=== PATIENT | female | born 1960 | race Caucasian/White ===

== ENCOUNTER 2019-01-27 09:41 | Emergency (ER) | payer OTHER ==
[~2019-01-27] VITALS: Ht 157.5 cm; Wt 53.8 kg
[~2019-01-27 09:41] MED LIST: ASPI-650 PO; ASPI81TA52 PO; ATOR80TA18; BENA10TA4 PO; CALC500T; CARV25TA79 PO; CLON0.2T5 PO; DOCU-159; DOCU-159 PO; FAMO20TA18 PO; FURO20TA3 PO; FURO40TA4 PO; GABA300C16; INSU100C SQ; INSU100V23 SC; LORA1TAB PO; METO-53; MULT-236; NIFE60TA18 PO; NPH SC; OMEG500C3; OXYC5TAB; TRAZ-111
[2019-01-27 09:43] VITALS: Ht 157.5 cm; Wt 53.8 kg
--- NOTE | 2019-01-27 11:36 | ERD ---
ER Documentation Chief Complaint Chief Complaint chest pain this morning and hypertension since last night HPI 58-year-old female end-stage renal disease on dialysis Monday who ran out of her nifedipine did not take her p.m. dose yesterday but instead took clonidine. Patient endorses mild shortness of breath and chest pain since yesterday. Is due for dialysis tomorrow through her porch in her right chest. Patient denies any infectious symptoms no fever, cough, diaphoresis. ROS All systems reviewed and are negative except as per history of present illness. Medications Home Meds Reported Medications Lorazepam* (Lorazepam*) 1 Mg Tablet, 1 MG PO HS PRN for ANXIETY, #30 TAB 01/27/19 Insulin Lispro (Humalog) 100 Unit/1 Ml Cartridge, 0 SQ PRN, EA PT USES PUMP 01/27/19 Nifedipine* (Nifedipine ER*) 60 Mg Tablet.sa, 60 MG PO BID, TAB.SA 01/27/19 Carvedilol* (Carvedilol*) 25 Mg Tablet, 25 MG PO BID, #60 TAB 01/27/19 Clonidine Hcl* (Clonidine Hcl*) 0.2 Mg Tablet, 0.2 MG PO DAILY PRN for ELEVATED BLOOD PRESSURE, TAB 01/27/19 Aspirin (Low Dose Aspirin) 81 Mg Tablet.dr, 81 MG PO DAILY, #30 TAB 01/27/19 Docusate Sodium* (Docusate Sodium*) 100 Mg Capsule, 100 MG PO DAILY, #30 CAP 01/27/19 Furosemide* (Furosemide*) 40 Mg Tablet, 40 MG PO QAM, TAB 01/27/19 Furosemide* (Furosemide*) 20 Mg Tablet, 20 MG PO QHS, #60 TAB 01/27/19 Famotidine* (Famotidine*) 20 Mg Tablet, 20 MG PO DAILY, #30 TAB 01/27/19 Discontinued Reported Medications Benazepril Hcl* (Benazepril Hcl*) 10 Mg Tablet, 10 MG PO DAILY 12/07/11 Famotidine* (Famotidine*) 20 Mg Tablet, 20 MG PO DAILY 12/07/11 Aspirin (Aspirin) 81 Mg Tablet, 81 MG PO DAILY 06/06/11 Multivitamins (Multi-Day Vitamin) 1 Tab Tablet 09/21/10 [place]-3 Fatty Acids (Fish Oil) 500 Mg Capsule 09/21/10 Calcium Carbonate (Calcium 500) 1 Tab Tablet 09/21/10 Trazodone Hcl* (Trazodone Hcl*) 50 Mg Tablet 09/21/10 Insulin Regular, Human* (Novolin R*) 100 U/Ml Vial, 15 UNITS SC BID, 0 Refills 09/21/10 Insulin Human Nph (Novolin-N) 100 Units/Ml Susp, 15 UNITS SC BID, 0 Refills 09/21/10 Gabapentin* (Gabapentin*) 300 Mg Capsule 09/20/10 Metoprolol (Lopressor) 50 Mg Tablet 09/20/10 Oxycodone Hcl (Oxycodone Hcl) 5 Mg Tablet 09/20/10 Docusate Sodium* (Docusate Sodium*) 100 Mg Capsule 09/20/10 Atorvastatin (Lipitor) 80 Mg Tablet 09/20/10 Allergies Allergies: Coded Allergies: No Known Allergy (Verified , 01/27/19) PMhx/Soc History of Surgery: Yes (STENT) Anesthesia Reaction: No Hx Neurological Disorder: No Hx Respiratory Disorders: Yes (COPD?) Hx Cardiac Disorders: Yes (HTN, OR, STENT,) Hx Psychiatric Problems: No Hx Miscellaneous Medical Probl: Yes (ON DIALYSIS M-W-F) Hx Alcohol Use: No Hx Substance Use: No Hx Tobacco Use: Yes Smoking Status: Never smoker Physical Exam Vitals Vital Signs Date Temp Pulse Resp B/P (MAP) Pulse Ox O2 O2 Flow FiO2 Time Delivery Rate 01/27/19 65 20 245/114 99 Room Air 11:02 (157) 01/27/19 63 18 241/110 99 Room Air 10:14 (153) 01/27/19 97.1 68 18 236/115 98 09:43 (155) Physical Exam Const: No acute distress Head: Atraumatic Eyes: Normal Conjunctiva ENT: Normal External Ears, Nose and Mouth. Neck: Full range of motion. No meningismus. Resp: Clear to auscultation bilaterally. Chest right chest cath clean dry intact Cardio: Regular rate and rhythm, no murmurs Abd: Soft, non tender, non distended. Normal bowel sounds Skin: No petechiae or rashes Back: No midline or flank tenderness Ext: No cyanosis, or edema Neur: Awake and alert Psych: Normal Mood and Affect Result Diagram: 01/27/19 1030 01/27/19 1030 Results 24 hrs Laboratory Tests Test 01/27/19 10:30 White Blood Count 7.8 10^3/ul Red Blood Count 3.26 10^6/ul Hemoglobin 10.2 g/dl Hematocrit 31.5 % Mean Corpuscular Volume 96.6 fl Mean Corpuscular Hemoglobin 31.3 pg Mean Corpuscular Hemoglobin Concent 32.4 g/dl Red Cell Distribution Width 13.7 % Platelet Count 240 10^3/UL Mean Platelet Volume 11.6 fl Immature Granulocytes % 0.400 % Neutrophils % 65.0 % Lymphocytes % 19.4 % Monocytes % 7.5 % Eosinophils % 7.2 % Basophils % 0.5 % Nucleated Red Blood Cells % 0.0 /100WBC Immature Granulocytes # 0.030 10^3/ul Neutrophils # 5.0 10^3/ul Lymphocytes # 1.5 10^3/ul Monocytes # 0.6 10^3/ul Eosinophils # 0.6 10^3/ul Basophils # 0.0 10^3/ul Nucleated Red Blood Cells # 0.0 10^3/ul Sodium Level 140 mmol/L Potassium Level 3.4 mmol/L Chloride Level 105 mmol/L Carbon Dioxide Level 27 mmol/L Anion Gap 8 Blood Urea Nitrogen 33 mg/dl Creatinine 4.55 mg/dl Est Glomerular Filtrat Rate mL/min 10 mL/min Glucose Level 155 mg/dl Calcium Level 9.2 mg/dl Troponin I < 0.012 ng/ml Current Medications Medications Dose Sig/Francisca Start Time Status Last (Trade) Ordered Route PRN Stop Time Admin Dose Reason Admin Clonidine 0.1 mg ONCE ONCE 01/27/19 DC (Catapres) PO 12:00 01/27/19 12:00 Nifedipine 20 mg ONCE ONCE 01/27/19 DC (Procardia) PO 12:00 01/27/19 12:01 Procedures/[facility] 12 lead ECG Time: 1125 Rate/Rhythm: Normal Sinus Rhythm at a rate of [67] beats per minute QRS, ST, T-waves: No changes consistent w/ acute ischemia Impression: No evidence of ischemia or arrhythmia The patient presents with chest pain and I considered pulmonary embolism, aortic dissection, pneumothorax among other diagnoses. Evaluation for acute coronary syndrome was performed. Troponin was negative patient was hyper tensive with no significant EKG changes. Hypertension likely secondary to noncompliance of nifedipine. Will re-prescribe nifedipine. Patient also has evidence of hypervolemia but is not hypoxic not short of breath at this time. And is due for dialysis tomorrow. Will discharge patient for dialysis tomorrow with strict return precautions. Departure Diagnosis: Primary Impression: Hypertension Additional Impression: Shortness of breath Condition: Stable ARON CAMPBELL MD Jan 27, 2019 11:36
[2019-01-27] MEDS ORDERED: NIFEdipine 10 MG CAP PO ONE (12:00)
[2019-01-27 13:23] VITALS: BP 205/94; PULSE 66; RESP 18
== END 2019-01-27 13:25 | disposition home or self-care (01) ==
LOC: E/R 09:41
DX: R06.02 Shortness of breath (principal); I10 Essential (primary) hypertension; I25.2 Old myocardial infarction; Z87.891 Personal history of nicotine dependence
CPT/HCPCS: 36415; 71045; 80048; 84484; 85025; 93005; Z7502; Z7610